=== PATIENT | female | born 1995 | race Two or more races ===

== ENCOUNTER → 2024-03-29 13:41 | Outpatient (CLI) | payer OTHER | END | disposition home or self-care (01) | LOC: PRENATAL 13:41 | PROVIDERS: ATTEND Obstetrics & Gynecology Maternal & Fetal Medicine | DX: O35.3XX0 Maternal care for (suspected) damage to fetus from viral disease in mother, not applicable or unspecified (principal); O44.00 Complete placenta previa NOS or without hemorrhage, unspecified trimester; O99.891 Other specified diseases and conditions complicating pregnancy; Z3A.19 19 weeks gestation of pregnancy ==

== ENCOUNTER → 2024-05-24 09:24 | Outpatient (CLI) | payer OTHER | END | disposition home or self-care (01) | LOC: PRENATAL 09:24 | PROVIDERS: ATTEND Obstetrics & Gynecology Maternal & Fetal Medicine | DX: O26.849 Uterine size-date discrepancy, unspecified trimester (principal); O43.90 Unspecified placental disorder, unspecified trimester; Z3A.28 28 weeks gestation of pregnancy ==

== ENCOUNTER 2024-06-23 10:17 | Outpatient (CLI) | payer OTHER | END 2024-06-23 10:19 | disposition home or self-care (01) | LOC: PRENATAL 10:17 | PROVIDERS: ATTEND Obstetrics & Gynecology Maternal & Fetal Medicine | DX: Z76.1 Encounter for health supervision and care of foundling (principal) ==

== ENCOUNTER 2024-07-05 15:01 | Outpatient (CLI) | payer OTHER | END 2024-07-05 15:02 | disposition home or self-care (01) | LOC: PRENATAL 15:01 | PROVIDERS: ATTEND Obstetrics & Gynecology Maternal & Fetal Medicine | DX: Z76.1 Encounter for health supervision and care of foundling (principal) ==

== ENCOUNTER 2024-07-06 14:19 | Outpatient (CLI) | payer OTHER | END 2024-07-06 14:22 | disposition home or self-care (01) | LOC: PRENATAL 14:19 | PROVIDERS: ATTEND Obstetrics & Gynecology Maternal & Fetal Medicine | DX: O26.849 Uterine size-date discrepancy, unspecified trimester (principal); O36.8199 Decreased fetal movements, unspecified trimester, other fetus; O43.90 Unspecified placental disorder, unspecified trimester; Z3A.34 34 weeks gestation of pregnancy ==

== ENCOUNTER 2024-07-21 09:07 | Outpatient (CLI) | payer OTHER | END 2024-07-21 09:08 | disposition home or self-care (01) | LOC: PRENATAL 09:07 | PROVIDERS: ATTEND Obstetrics & Gynecology Maternal & Fetal Medicine | DX: Z76.1 Encounter for health supervision and care of foundling (principal) ==